=== PATIENT | female | born 1950 | race Caucasian/White ===

== ENCOUNTER 2024-05-26 12:38 | Emergency (ER) | payer MEDICARE ==
[2024-05-26] MEDS ORDERED: Orphenadrine Citrate 60 MG/2 ML VIAL ONE (13:50)
[2024-05-26] MEDS ORDERED: Ketorolac Tromethamine 30 MG (1 mL) VIAL ONE (13:50)
[2024-05-26] MEDS ORDERED: predniSONE 20 MG TAB ONE (13:50)
== END 2024-05-26 15:48 | disposition home or self-care (01) ==
LOC: ERS 12:38
DX: M54.50 Low back pain, unspecified (principal); I10 Essential (primary) hypertension; Z79.899 Other long term (current) drug therapy
CPT/HCPCS: J1885; J2360; 96372; 99283; J7512